=== PATIENT | male | born 1985 ===

== ENCOUNTER 2017-11-24 19:46 | Emergency (ER) | payer SELFPAY ==
[2017-11-24] MEDS ORDERED: PEPCID IV ONE (20:32)
[2017-11-24] MEDS ORDERED: NACL 0.9% 1000 ML 1,000 ML IV ONE ×2 (20:32→23:14)
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
[2017-11-24 20:42] LABS: Bilirubin,Urine NEG (Negative); Blood,Urine NEG (Negative); Color,Urine Yellow (Yellow); Mucus,Urine FEW /HPF; Protein,Urine <15 mg/dL mg/dL (Negative)
[2017-11-24 20:43] LABS: Basophils # (Auto) 0.1 K/mm3 (0.0-0.1); Basophils % (Auto) 0.5 % (0.0-1.8); Eosinophils # (Auto) 0.2 K/mm3 (0.0-0.4); Eosinophils % (Auto) 1.6 % (0.0-4.3); Hematocrit 37.6 % (35.5-45.6); Hemoglobin 12.4 gm/dl (11.8-15.2); Lymphocytes # (Auto) 2.4 K/mm3 (1.2-5.4); Lymphocytes % (Auto) 15.6 % (13.4-35.0); Mean Corpuscular HGB Conc 33 % (32-34); Mean Corpuscular Hemoglobin 31 pg (28-32); Mean Corpuscular Volume 95 fl (84-94); Monocytes # (Auto) 0.6 K/mm3 (0.0-0.8); Platelet Count 211 K/mm3 (140-440); Red Blood Count 3.97 M/mm3 (3.65-5.03); Red Cell Distribution Width 13.5 % (13.2-15.2)
[2017-11-24 20:56] LABS: Amphetamine Screen,Urine PRESUMPTIVE NEGATIVE; Benzodiazepines Screen,Urine PRESUMPTIVE NEGATIVE; Cannabinoid Screen,Urine PRESUMPTIVE NEGATIVE; Cocaine Screen,Urine PRESUMPTIVE NEGATIVE; Methadone Screen,Urine PRESUMPTIVE NEGATIVE; Opiate Screen,Urine PRESUMPTIVE NEGATIVE
[2017-11-24 21:02] LABS: INR 1.04 (0.87-1.13)
[2017-11-24 21:03] LABS: Alanine Aminotransferase 15 units/L (7-56); Albumin 3.8 g/dL (3.9-5); BUN/Creatinine Ratio 26; Blood Urea Nitrogen 26 mg/dL (9-20); Calcium 8.5 mg/dL (8.4-10.2); Hemolysis Index 6
--- NOTE | 2017-11-24 22:26 | Cat Scan Report ---
FINAL REPORT EXAM: CT HEAD/BRAIN WO CON HISTORY: sz vs syncope TECHNIQUE: Standard unenhanced CT of the head at 5.0 millimeter axial increments. PRIORS: None. FINDINGS: The ventricular system is normal in size and configuration. There is no evidence for parenchymal volume loss. There is no evidence for mass lesion, mass effect, midline shift, acute intracranial hemorrhage, or acute ischemia/ infarction. No evidence for acute skull fracture is seen. No abnormality in the overlying scalp soft tissues is seen. Visualized paranasal sinuses demonstrates mucosal thickening in the right frontal and bilateral ethmoid sinuses.. IMPRESSION: Chronic sinusitis of the right frontal and bilateral ethmoid sinuses. No acute intracranial process noted.
--- NOTE | 2017-11-24 22:37 | Cat Scan Report ---
FINAL REPORT PROCEDURE: CT ANGIO CHEST TECHNIQUE: Computerized tomographic angiography of the chest was performed after the IV injection of iodinated nonionic contrast including image processing. The image data was postprocessed using 2-dimensional multiplanar reformatted (MPR) and 3-dimensional (MIP and/or volume rendered) techniques. HISTORY: sz vs syncope COMPARISON: No prior studies are available for comparison. FINDINGS: Heart and pericardium: Normal. Thoracic aorta: Attenuation 329 HU. No evidence of dissection. Possible slight ductus defect Pulmonary vasculature: Relatively weak opacification of the pulmonary arteries. Predominant contrast in the aorta. Attenuation only 157 HU. No definite evidence of large or central PE in the main pulmonary outflow tract. Contrast is so weak at the main pulmonary arteries and distally is difficult to exclude moderate to small PE in the proximal pulmonary artery level in the hilar areas in the secondary and tertiary branches. If symptoms and or concern persists recommend followup with proper IV contrast timing or V/Q scan as warranted. Lymph nodes: Small lymph nodes in the pre portal area 1 x 1.5 centimeters. Lungs: Normal. Pleural space: No effusion, thickening, or pneumothorax. Musculoskeletal structures: No significant abnormality. Upper abdominal structures: Heterogeneous liver with corkscrew arterial anatomy. Gallstones seen gallbladder. Distended stomach. IMPRESSION: No acute pathology seen at this time. Inconclusive evaluation of pulmonary arteries due to phase of acquisition. Details above. Followup advised as warranted.
--- NOTE | 2017-11-24 22:48 | Cat Scan Report ---
FINAL REPORT EXAM: CT ABDOMEN PELVIS W CON HISTORY: sz vs syncope TECHNIQUE: Standard enhanced CT of the abdomen and pelvis. Coronal and sagittal reconstruction was also performed. Delayed imaging through the kidneys and bladder was obtained. Contrast: 100 mL Omnipaque 350 given IV. PRIORS: None. FINDINGS: Within the abdomen, the liver, spleen, pancreas, adrenal glands, and kidneys are unremarkable. Gallstones in the gallbladder are noted. The stomach is mildly distended and contains food debris. No evidence for retroperitoneal or pelvic lymphadenopathy is seen. The bowel loops have normal caliber. No soft tissue mass, fluid collection, inflammatory change, or free air is seen within the abdomen or pelvis. The appendix is normal. Several small midline ventral hernias are noted containing only fat (sagittal image 131). Within the pelvis, the bladder is unremarkable. The prostate is normal. No evidence for mass or lymphadenopathy is seen in the pelvis. Images through the upper abdomen include the lung bases which are expanded and clear. Bony structures show no focal abnormalities and are intact. IMPRESSION: 1. No acute intra-abdominal process noted. 2. Cholelithiasis 3. Several small midline ventral hernias containing only fat
--- NOTE | 2017-11-25 00:45 | Nuclear Medicine Report ---
FINAL REPORT EXAM: NM LUNG SCAN PERF/VENT HISTORY: syncope indeterminate v/w scan COMPARISON: CT angiography of the chest from yesterday. TECHNIQUE: 5 millicuries technetium 99 M MAA given for the perfusion portion the study by IV. 15 millicuries xenon 133 given for the ventilation portion of the study. FINDINGS: Relatively homogeneous uptake of tracer in both the ventilation and perfusion portions of the exam. No mismatched defect. IMPRESSION: Very low probability exam for pulmonary embolus.
[2017-11-25 02:39] VITALS: BP 100/56
[2017-11-25] MEDS ORDERED: DIPRIVAN 10 MG/ML IV ONE (18:30)
== END 2017-11-25 02:38 | disposition home or self-care (01) ==
LOC: ED 19:46
DX: R56.9 Unspecified convulsions (principal)
CPT/HCPCS: 36415; 70450; 71275; 74177; 78582; 80053; 80307; 81001; 82550; 83735; 84443; 84484; 85025; 85379; 85610; 93005; 93010; 96361; 96374; 99285; A9540; A9558; J2704; J7030; Q9967

== ENCOUNTER 2017-11-25 14:29 | Inpatient (IN) | payer OTHER ==
[2017-11-25 15:23] LABS: Hematocrit 29.2 % (35.5-45.6); Hemoglobin 9.6 gm/dl (11.8-15.2); Mean Corpuscular HGB Conc 33 % (32-34); Mean Corpuscular Hemoglobin 32 pg (28-32); Mean Corpuscular Volume 96 fl (84-94); Platelet Count 194 K/mm3 (140-440); Red Blood Count 3.04 M/mm3 (3.65-5.03); Red Cell Distribution Width 13.5 % (13.2-15.2)
[2017-11-25 15:25] LABS: INR 1.04 (0.87-1.13)
[2017-11-25 15:26] LABS: Partial Thromboplastin Time 23.9 Sec. (24.2-36.6)
[2017-11-25] MEDS ORDERED: NACL 0.9% 1000 ML 2,000 ML IV ONE (15:40)
[2017-11-25] MEDS ORDERED: NACL 0.9% 500 ML 500 ML IV ONE (15:40)
[2017-11-25] MEDS ORDERED: NACL 0.9% 1000 ML 2,000 ML ONE (15:42)
--- NOTE | 2017-11-25 15:42 | Emergency Department Report ---
Blank Doc - Documentation Documentation: Patient is a 32-year-old male. History of seizures who presents with GI bleed and fatigue. Patient had multiple large black tarry stools today. Patient states he had similar problems in May however he wasn't seen by anyone. Patient denies being in any pain. We'll transfuse patient will give Protonix.
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
[2017-11-25 15:53] LABS: Alanine Aminotransferase 13 units/L (7-56); Albumin 3.8 g/dL (3.9-5); BUN/Creatinine Ratio 29; Blood Urea Nitrogen 23 mg/dL (9-20); Calcium 8.2 mg/dL (8.4-10.2); Hemolysis Index 1; Lipase 31 units/L (13-60)
[2017-11-25] MEDS ORDERED: PROTONIX 80 MG in NACL 0.9% 100 ML IV SCH (16:00)
[2017-11-25 16:03] LABS: Basophils % (Manual) 0 % (0.0-1.8); Total Cells Counted 100
[2017-11-25 16:04] LABS: RBC Morphology Normal
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
[2017-11-25] MEDS ORDERED: WATER FOR IRRIG STERILE IR ONE (17:39)
[2017-11-25] MEDS ORDERED: NACL 0.9% 1000 ML 1,000 ML ONE (17:39)
[2017-11-25] MEDS ORDERED: DIPRIVAN 10 MG/ML IV ONE ×2 (17:56→17:57)
[2017-11-25] MEDS ORDERED: ADRENALIN ONE (18:00)
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
--- NOTE | 2017-11-25 18:04 | Anesthesia Consultation ---
Anesthesia Consult and Med Hx Date of service: 11/25/17 - Airway Anesthetic Teeth Evaluation: Good ROM Head & Neck: Adequate Mental/Hyoid Distance: Adequate Mallampati Class: Class III Intubation Access Assessment: Possibly Difficult - Pre-Operative Health Status ASA Pre-Surgery Classification: ASA3, Emergency Proposed Anesthetic Plan: MAC - Pulmonary Hx Smoking: Yes Hx Sleep Apnea: Yes (snoring) - Gastrointestinal Hx Ulcer: Yes (GI bleed) - Other Systems Hx Obesity: Yes (Morbid obesity)
--- NOTE | 2017-11-25 18:05 | Anesthesia Day of Surgery ---
Anesthesia Day of Surgery - Day of Surgery Patient Examined: Yes Patient H&P Reviewed: Yes Patient is NPO: Yes (had few sips of Gatorade over 2 hours ago, no food since 9AM)
--- NOTE | 2017-11-25 18:57 | Operative Report ---
Operative Report Operative Report: Date of procedure: 11/25/2017 Procedure: Esophagogastroduodenoscopy with hemorrhage control measures- epinephrine injection and Endo Clip placement Preprocedure diagnosis: Acute upper GI bleeding Post procedure diagnosis: Multiple duodenal ulcers 2 with visible vessels. Endoscopist: Dr. Graves Anesthesia: Monitored anesthesia care per anesthesia department Medications: Propofol per anesthesia Estimated blood loss: 0 After careful discussion of the nature and purpose of the procedure as well as details the technique risks benefits and alternatives consent was obtained. The patient was placed in the left lateral decubitus position and medicated per anesthesia. The tip of the Koinify EQ 570 video scope was passed per orum under direct vision into the esophagus and advanced into the stomach and descending duodenum. The descending duodenum was normal. The duodenal bulb revealed moderate deformity and a 1.5 cm dumbbell shaped ulcer crater with a visible vessel. There was a smaller ulcer approximately 5 mm in size which was oozing bright red blood. Epinephrine injection with 1-10,000 solution in each of the 2 areas was performed, 1 mL each. Endoclips were placed on the suspected bleeding sources with good immediate results. The scope was withdrawn into the stomach and the stomach then gently insufflated with air. The antrum was normal. The stomach was further insufflated and the scope was then retroflexed and partially withdrawn. The cardia, fundus, and body of the stomach were within normal limits and easily distensible.The scope was then withdrawn in the forward position. The esophagogastric junction was at 40 cm. The esophageal body was normal throughout. The procedure was was well tolerated and the patient was observed in recovery. Impressions: Multiple duodenal ulcers 2 with visible vessels. Status post hemorrhage control measures as above. Plan: ICU monitoring with PPI drip. Electronically signed: Andrew Graves MD
[2017-11-25] MEDS ORDERED: MORPHINE IV PRN (20:12)
[2017-11-25] MEDS ORDERED: ZOFRAN IV PRN (20:12)
[2017-11-25] MEDS ORDERED: TYLENOL PO PRN (20:12)
[2017-11-25] MEDS ORDERED: DILAUDID IV PRN (20:12)
[2017-11-25] MEDS ORDERED: SODIUM CHLORIDE FLUSH SYRINGE 10 ML IV PRN (20:12)
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
[2017-11-25 20:56] LABS: Hematocrit 25.6 % (35.5-45.6); Hemoglobin 8.5 gm/dl (11.8-15.2)
[2017-11-25] MEDS ORDERED: D5NS 1,000 ML IV SCH (21:00)
[2017-11-26] MEDS: SODIUM CHLORIDE FLUSH SYRINGE 10 ML IV SCH ×3 (00:52→22:00)
[2017-11-26 04:43] LABS: Basophils # (Auto) 0.1 K/mm3 (0.0-0.1); Basophils % (Auto) 0.7 % (0.0-1.8); Eosinophils # (Auto) 0.1 K/mm3 (0.0-0.4); Hematocrit 22.2 % (35.5-45.6); Hemoglobin 7.6 gm/dl (11.8-15.2); Lymphocytes # (Auto) 2.5 K/mm3 (1.2-5.4); Lymphocytes % (Auto) 24.8 % (13.4-35.0); Mean Corpuscular HGB Conc 34 % (32-34); Mean Corpuscular Hemoglobin 32 pg (28-32); Mean Corpuscular Volume 94 fl (84-94); Monocytes # (Auto) 0.7 K/mm3 (0.0-0.8); Monocytes % (Auto) 6.7 % (0.0-7.3); Platelet Count 142 K/mm3 (140-440); Red Blood Count 2.36 M/mm3 (3.65-5.03); Red Cell Distribution Width 13.4 % (13.2-15.2)
[2017-11-26 05:05] LABS: Alanine Aminotransferase 10 units/L (7-56); Albumin 3.5 g/dL (3.9-5); BUN/Creatinine Ratio 18; Blood Urea Nitrogen 16 mg/dL (9-20); Calcium 7.9 mg/dL (8.4-10.2); Hemolysis Index 6
[2017-11-26] MEDS: PROTONIX 80 MG in NACL 0.9% 100 ML IV SCH ×2 (05:12→18:21)
[2017-11-26] MEDS ORDERED: NACL 0.9% 500 ML 500 ML IV ONE (06:47)
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
--- NOTE | 2017-11-26 08:12 | Gastroenterology Progress Note ---
Assessment and Plan - Patient Problems (1) Acute upper GI bleed Current Visit: Yes Status: Acute Plan to address problem: S/p major UGI bleed secondary to duodenal ulcer. Decreased H&H and BUN more c/ w rehydration than bleeding overnight. Getting transfused presently. Stable hemodynamically. Will advance to clears. Continue PPI drip. Home 1-2 days if remains stable. (2) Duodenal ulcer Current Visit: Yes Status: Acute Subjective Date of service: 11/26/17 Principal diagnosis: UGI bleed secondary to PUD Interval history: The patient reports feeling better. No stools overnight. Objective - Constitutional Vitals: Temp Pulse Resp BP Pulse Ox 99.1 F 87 18 130/76 100 11/25/17 19:56 11/26/17 06:45 11/26/17 06:45 11/26/17 06:45 11/26/17 06:30 General appearance: no acute distress, obese - EENT ENT: hearing intact, clear oral mucosa, dentition normal - Respiratory Respiratory effort: normal Respiratory: bilateral: CTA - Cardiovascular Rhythm: regular - Gastrointestinal General gastrointestinal: Present: soft, non-tender, non-distended, normal bowel sounds - Neurologic Neurological: alert and oriented x3 - Labs CBC & Chem 7: 11/26/17 04:20 11/26/17 04:20 Labs: Laboratory Results - last 24 hr 11/25/17 11/25/17 11/25/17 15:02 15:02 15:02 WBC 12.5 H RBC 3.04 L Hgb 9.6 L Hct 29.2 L D MCV 96 H MCH 32 MCHC 33 RDW 13.5 Plt Count 194 Lymph % (Auto) [place] % (Auto) Eos % (Auto) Baso % (Auto) Lymph # [place] # Eos # Baso # Add Manual Diff Complete Total Counted 100 Seg Neutrophils % Seg Neuts % (Manual) 81.0 H Band Neutrophils % 0 Lymphocytes % (Manual) 13.0 L Reactive Lymphs % (Man) 0 Monocytes % (Manual) 4.0 Eosinophils % (Manual) 2.0 Basophils % (Manual) 0 Metamyelocytes % 0 Myelocytes % 0 Promyelocytes % 0 Blast Cells % 0 Nucleated RBC % Not Reportable Seg Neutrophils # Seg Neutrophils # Man 10.1 H Band Neutrophils # 0.0 Lymphocytes # (Manual) 1.6 Abs React Lymphs (Man) 0.0 Monocytes # (Manual) 0.5 Eosinophils # (Manual) 0.3 Basophils # (Manual) 0.0 Metamyelocytes # 0.0 Myelocytes # 0.0 Promyelocytes # 0.0 Blast Cells # 0.0 WBC Morphology Not Reportable Hypersegmented Neuts Not Reportable Hyposegmented Neuts Not Reportable Hypogranular Neuts Not Reportable Smudge Cells Not Reportable Toxic Granulation Not Reportable Toxic Vacuolation Not Reportable Dohle Bodies Not Reportable Pelger-Huet Anomaly Not Reportable Iain Rods Not Reportable Platelet Estimate Appears normal Clumped Platelets Not Reportable Plt Clumps, EDTA Not Reportable Large Platelets Not Reportable Giant Platelets Not Reportable Platelet Satelliting Not Reportable Plt Morphology Comment Not Reportable RBC Morphology Normal Dimorphic RBCs Not Reportable Polychromasia Not Reportable Hypochromasia Not Reportable Poikilocytosis Not Reportable Anisocytosis Not Reportable Microcytosis Not Reportable Macrocytosis Not Reportable Spherocytes Not Reportable Pappenheimer Bodies Not Reportable Sickle Cells Not Reportable Target Cells Not Reportable Tear Drop Cells Not Reportable Ovalocytes Not Reportable Helmet Cells Not Reportable Barajas-Bowler Bodies Not Reportable [place] Rings Not Reportable [place] Cells Not Reportable Bite Cells Not Reportable Crenated Cell Not Reportable Elliptocytes Not Reportable Acanthocytes (Spur) Not Reportable Rouleaux Not Reportable Hemoglobin C Crystals Not Reportable Schistocytes Not Reportable Malaria parasites Not Reportable Gregorio Bodies Not Reportable Hem Pathologist Commnt No PT 14.1 INR 1.04 APTT 23.9 L Sodium 137 Potassium 4.2 Chloride 101.9 Carbon Dioxide 24 Anion Gap 15 BUN 23 H Creatinine 0.8 Estimated GFR > 60 BUN/Creatinine Ratio 29 Glucose 105 H Calcium 8.2 L Total Bilirubin 0.50 AST 10 ALT 13 Alkaline Phosphatase 37 Total Protein 6.1 L Albumin 3.8 L Albumin/Globulin Ratio 1.7 Lipase 31 Blood Type Antibody Screen Crossmatch 11/25/17 11/25/17 11/26/17 15:02 20:44 04:20 WBC 10.1 RBC 2.36 L Hgb 8.5 L 7.6 L Hct 25.6 L 22.2 L MCV 94 MCH 32 MCHC 34 RDW 13.4 Plt Count 142 Lymph % (Auto) 24.8 [place] % (Auto) 6.7 Eos % (Auto) 1.0 Baso % (Auto) 0.7 Lymph # 2.5 [place] # 0.7 Eos # 0.1 Baso # 0.1 Add Manual Diff Total Counted Seg Neutrophils % 66.8 Seg Neuts % (Manual) Band Neutrophils % Lymphocytes % (Manual) Reactive Lymphs % (Man) Monocytes % (Manual) Eosinophils % (Manual) Basophils % (Manual) Metamyelocytes % Myelocytes % Promyelocytes % Blast Cells % Nucleated RBC % Seg Neutrophils # 6.7 Seg Neutrophils # Man Band Neutrophils # Lymphocytes # (Manual) Abs React Lymphs (Man) Monocytes # (Manual) Eosinophils # (Manual) Basophils # (Manual) Metamyelocytes # Myelocytes # Promyelocytes # Blast Cells # WBC Morphology Hypersegmented Neuts Hyposegmented Neuts Hypogranular Neuts Smudge Cells Toxic Granulation Toxic Vacuolation Dohle Bodies Pelger-Huet Anomaly Iain Rods Platelet Estimate Clumped Platelets Plt Clumps, EDTA Large Platelets Giant Platelets Platelet Satelliting Plt Morphology Comment RBC Morphology Dimorphic RBCs Polychromasia Hypochromasia Poikilocytosis Anisocytosis Microcytosis Macrocytosis Spherocytes Pappenheimer Bodies Sickle Cells Target Cells Tear Drop Cells Ovalocytes Helmet Cells Barajas-Bowler Bodies [place] Rings Olivier Cells Bite Cells Crenated Cell Elliptocytes Acanthocytes (Spur) Rouleaux Hemoglobin C Crystals Schistocytes Malaria parasites Gregorio Bodies Hem Pathologist Commnt PT INR APTT Sodium Potassium Chloride Carbon Dioxide Anion Gap BUN Creatinine Estimated GFR BUN/Creatinine Ratio Glucose Calcium Total Bilirubin AST ALT Alkaline Phosphatase Total Protein Albumin Albumin/Globulin Ratio Lipase Blood Type A POSITIVE Antibody Screen Negative Crossmatch See Detail 11/26/17 04:20 WBC RBC Hgb Hct MCV MCH MCHC RDW Plt Count Lymph % (Auto) [place] % (Auto) Eos % (Auto) Baso % (Auto) Lymph # [place] # Eos # Baso # Add Manual Diff Total Counted Seg Neutrophils % Seg Neuts % (Manual) Band Neutrophils % Lymphocytes % (Manual) Reactive Lymphs % (Man) Monocytes % (Manual) Eosinophils % (Manual) Basophils % (Manual) Metamyelocytes % Myelocytes % Promyelocytes % Blast Cells % Nucleated RBC % Seg Neutrophils # Seg Neutrophils # Man Band Neutrophils # Lymphocytes # (Manual) Abs React Lymphs (Man) Monocytes # (Manual) Eosinophils # (Manual) Basophils # (Manual) Metamyelocytes # Myelocytes # Promyelocytes # Blast Cells # WBC Morphology Hypersegmented Neuts Hyposegmented Neuts Hypogranular Neuts Smudge Cells Toxic Granulation Toxic Vacuolation Dohle Bodies Pelger-Huet Anomaly Iain Rods Platelet Estimate Clumped Platelets Plt Clumps, EDTA Large Platelets Giant Platelets Platelet Satelliting Plt Morphology Comment RBC Morphology Dimorphic RBCs Polychromasia Hypochromasia Poikilocytosis Anisocytosis Microcytosis Macrocytosis Spherocytes Pappenheimer Bodies Sickle Cells Target Cells Tear Drop Cells Ovalocytes Helmet Cells Barajas-Bowler Bodies [place] Rings [place] Cells Bite Cells Crenated Cell Elliptocytes Acanthocytes (Spur) Rouleaux Hemoglobin C Crystals Schistocytes Malaria parasites Gregorio Bodies Hem Pathologist Commnt PT INR APTT Sodium 138 Potassium 4.0 Chloride 102.9 Carbon Dioxide 24 Anion Gap 15 BUN 16 Creatinine 0.9 Estimated GFR > 60 BUN/Creatinine Ratio 18 Glucose 106 H Calcium 7.9 L Total Bilirubin 0.50 AST 9 ALT 10 Alkaline Phosphatase 32 L Total Protein 5.4 L Albumin 3.5 L Albumin/Globulin Ratio 1.8 Lipase Blood Type Antibody Screen Crossmatch
[2017-11-26 11:48] LABS: Hematocrit 24.8 % (35.5-45.6); Hemoglobin 8.3 gm/dl (11.8-15.2)
--- NOTE | 2017-11-26 17:23 | Progress Note ---
Assessment and Plan Assessment and plan: --Acute GI bleeding; status post EGD Major upper GI bleeding secondary to duodenal ulcer Continue Protonix drip, advised to avoid NSAIDs, GI following --Acute blood loss anemia; requiring blood transfusion Closely monitor H&H and transfuse additional PRBC as needed --Acute duodenal ulcer; continue Protonix, strongly advised to avoid NSAIDs --Morbid obesity; counseling done patient strongly advised diet modification and exercise as tolerated and weight reduction and medically stable --Moderate protein calorie malnutrition; nutrition supplements and supportive care --Ongoing tobacco use; smoking cessation counseling done advised nicotine patch as needed --Closely monitor the patient and adjust management as needed --Possible discharge in 1-2 days if stable Plan of care reviewed with the patient and his nurse Consults and recommendations noted and appreciated History Interval history: Patient seen and examined medical records reviewed Admitted with acute GI bleeding Evaluated by GI and underwent EGD which showed 2 duodenal ulcers Patient is also acute blood loss anemia receiving blood transfusion No new episodes of bleeding Patient denies any new complaints Alert awake oriented 3 not in acute distress Vital signs reviewed Hospitalist Physical - Constitutional Vitals: Temp Pulse Resp BP Pulse Ox 99.0 F 88 20 123/67 99 11/26/17 16:02 11/26/17 16:02 11/26/17 16:02 11/26/17 16:02 11/26/17 16:02 General appearance: Present: no acute distress, well-nourished, obese (morbidly obese) - EENT Eyes: Present: PERRL, EOM intact - Neck Neck: Present: supple, normal ROM - Respiratory Respiratory effort: normal Respiratory: negative: rales, rhonchi, wheezing - Cardiovascular Rhythm: regular Heart Sounds: Present: S1 & S2 - Extremities Extremities: no ischemia, No edema - Abdominal General gastrointestinal: soft, non-tender, non-distended, normal bowel sounds - Integumentary Integumentary: Present: clear, warm - Psychiatric Psychiatric: appropriate mood/affect, cooperative - Neurologic Neurologic: CNII-XII intact, moves all extremities Results - Labs CBC & Chem 7: 11/26/17 11:41 11/26/17 04:20 Labs: Laboratory Last Values WBC 10.1 K/mm3 (4.5-11.0) 11/26/17 04:20 RBC 2.36 M/mm3 (3.65-5.03) L 11/26/17 04:20 Hgb 8.3 gm/dl (11.8-15.2) L 11/26/17 11:41 Hct 24.8 % (35.5-45.6) L 11/26/17 11:41 MCV 94 fl (84-94) 11/26/17 04:20 MCH 32 pg (28-32) 11/26/17 04:20 MCHC 34 % (32-34) 11/26/17 04:20 RDW 13.4 % (13.2-15.2) 11/26/17 04:20 Plt Count 142 K/mm3 (140-440) 11/26/17 04:20 Lymph % (Auto) 24.8 % (13.4-35.0) 11/26/17 04:20 [place] % (Auto) 6.7 % (0.0-7.3) 11/26/17 04:20 Eos % (Auto) 1.0 % (0.0-4.3) 11/26/17 04:20 Baso % (Auto) 0.7 % (0.0-1.8) 11/26/17 04:20 Lymph # 2.5 K/mm3 (1.2-5.4) 11/26/17 04:20 [place] # 0.7 K/mm3 (0.0-0.8) 11/26/17 04:20 Eos # 0.1 K/mm3 (0.0-0.4) 11/26/17 04:20 Baso # 0.1 K/mm3 (0.0-0.1) 11/26/17 04:20 Add Manual Diff Complete 11/25/17 15:02 Total Counted 100 11/25/17 15:02 Seg Neutrophils % 66.8 % (40.0-70.0) 11/26/17 04:20 Seg Neuts % (Manual) 81.0 % (40.0-70.0) H 11/25/17 15:02 Band Neutrophils % 0 % 11/25/17 15:02 Lymphocytes % (Manual) 13.0 % (13.4-35.0) L 11/25/17 15:02 Reactive Lymphs % (Man) 0 % 11/25/17 15:02 Monocytes % (Manual) 4.0 % (0.0-7.3) 11/25/17 15:02 Eosinophils % (Manual) 2.0 % (0.0-4.3) 11/25/17 15:02 Basophils % (Manual) 0 % (0.0-1.8) 11/25/17 15:02 Metamyelocytes % 0 % 11/25/17 15:02 Myelocytes % 0 % 11/25/17 15:02 Promyelocytes % 0 % 11/25/17 15:02 Blast Cells % 0 % 11/25/17 15:02 Nucleated RBC % Not Reportable 11/25/17 15:02 Seg Neutrophils # 6.7 K/mm3 (1.8-7.7) 11/26/17 04:20 Seg Neutrophils # Man 10.1 K/mm3 (1.8-7.7) H 11/25/17 15:02 Band Neutrophils # 0.0 K/mm3 11/25/17 15:02 Lymphocytes # (Manual) 1.6 K/mm3 (1.2-5.4) 11/25/17 15:02 Abs React Lymphs (Man) 0.0 K/mm3 11/25/17 15:02 Monocytes # (Manual) 0.5 K/mm3 (0.0-0.8) 11/25/17 15:02 Eosinophils # (Manual) 0.3 K/mm3 (0.0-0.4) 11/25/17 15:02 Basophils # (Manual) 0.0 K/mm3 (0.0-0.1) 11/25/17 15:02 Metamyelocytes # 0.0 K/mm3 11/25/17 15:02 Myelocytes # 0.0 K/mm3 11/25/17 15:02 Promyelocytes # 0.0 K/mm3 11/25/17 15:02 Blast Cells # 0.0 K/mm3 11/25/17 15:02 WBC Morphology Not Reportable 11/25/17 15:02 Hypersegmented Neuts Not Reportable 11/25/17 15:02 Hyposegmented Neuts Not Reportable 11/25/17 15:02 Hypogranular Neuts Not Reportable 11/25/17 15:02 Smudge Cells Not Reportable 11/25/17 15:02 Toxic Granulation Not Reportable 11/25/17 15:02 Toxic Vacuolation Not Reportable 11/25/17 15:02 Dohle Bodies Not Reportable 11/25/17 15:02 Pelger-Huet Anomaly Not Reportable 11/25/17 15:02 Iain Rods Not Reportable 11/25/17 15:02 Platelet Estimate Appears normal 11/25/17 15:02 Clumped Platelets Not Reportable 11/25/17 15:02 Plt Clumps, EDTA Not Reportable 11/25/17 15:02 Large Platelets Not Reportable 11/25/17 15:02 Giant Platelets Not Reportable 11/25/17 15:02 Platelet Satelliting Not Reportable 11/25/17 15:02 Plt Morphology Comment Not Reportable 11/25/17 15:02 RBC Morphology Normal 11/25/17 15:02 Dimorphic RBCs Not Reportable 11/25/17 15:02 Polychromasia Not Reportable 11/25/17 15:02 Hypochromasia Not Reportable 11/25/17 15:02 Poikilocytosis Not Reportable 11/25/17 15:02 Anisocytosis Not Reportable 11/25/17 15:02 Microcytosis Not Reportable 11/25/17 15:02 Macrocytosis Not Reportable 11/25/17 15:02 Spherocytes Not Reportable 11/25/17 15:02 Pappenheimer Bodies Not Reportable 11/25/17 15:02 Sickle Cells Not Reportable 11/25/17 15:02 Target Cells Not Reportable 11/25/17 15:02 Tear Drop Cells Not Reportable 11/25/17 15:02 Ovalocytes Not Reportable 11/25/17 15:02 Helmet Cells Not Reportable 11/25/17 15:02 Barajas-Cromberg Bodies Not Reportable 11/25/17 15:02 [place] Rings Not Reportable 11/25/17 15:02 Olivier Cells Not Reportable 11/25/17 15:02 Bite Cells Not Reportable 11/25/17 15:02 Crenated Cell Not Reportable 11/25/17 15:02 Elliptocytes Not Reportable 11/25/17 15:02 Acanthocytes (Spur) Not Reportable 11/25/17 15:02 Rouleaux Not Reportable 11/25/17 15:02 Hemoglobin C Crystals Not Reportable 11/25/17 15:02 Schistocytes Not Reportable 11/25/17 15:02 Malaria parasites Not Reportable 11/25/17 15:02 Gregorio Bodies Not Reportable 11/25/17 15:02 Hem Pathologist Commnt No 11/25/17 15:02 PT 14.1 Sec. (12.2-14.9) 11/25/17 15:02 INR 1.04 (0.87-1.13) 11/25/17 15:02 APTT 23.9 Sec. (24.2-36.6) L 11/25/17 15:02 Sodium 138 mmol/L (137-145) 11/26/17 04:20 Potassium 4.0 mmol/L (3.6-5.0) 11/26/17 04:20 Chloride 102.9 mmol/L (98-107) 11/26/17 04:20 Carbon Dioxide 24 mmol/L (22-30) 11/26/17 04:20 Anion Gap 15 mmol/L 11/26/17 04:20 BUN 16 mg/dL (9-20) 11/26/17 04:20 Creatinine 0.9 mg/dL (0.8-1.5) 11/26/17 04:20 Estimated GFR > 60 ml/min 11/26/17 04:20 BUN/Creatinine Ratio 18 % 11/26/17 04:20 Glucose 106 mg/dL (75-100) H 11/26/17 04:20 Calcium 7.9 mg/dL (8.4-10.2) L 11/26/17 04:20 Total Bilirubin 0.50 mg/dL (0.1-1.2) 11/26/17 04:20 AST 9 units/L (5-40) 11/26/17 04:20 ALT 10 units/L (7-56) 11/26/17 04:20 Alkaline Phosphatase 32 units/L (35-129) L 11/26/17 04:20 Total Protein 5.4 g/dL (6.3-8.2) L 11/26/17 04:20 Albumin 3.5 g/dL (3.9-5) L 11/26/17 04:20 Albumin/Globulin Ratio 1.8 % 11/26/17 04:20 Lipase 31 units/L (13-60) 11/25/17 15:02 Blood Type A POSITIVE 03/29/18 15:02 Antibody Screen Negative 11/25/17 15:02 Crossmatch See Detail 11/25/17 15:02
[2017-11-27] MEDS: PROTONIX 80 MG in NACL 0.9% 100 ML IV SCH ×2 (05:33→23:42)
[2017-11-27 07:43] LABS: Basophils # (Auto) 0.1 K/mm3 (0.0-0.1); Basophils % (Auto) 0.9 % (0.0-1.8); Eosinophils # (Auto) 0.2 K/mm3 (0.0-0.4); Eosinophils % (Auto) 3.4 % (0.0-4.3); Hematocrit 24.7 % (35.5-45.6); Hemoglobin 8.3 gm/dl (11.8-15.2); Lymphocytes # (Auto) 1.8 K/mm3 (1.2-5.4); Lymphocytes % (Auto) 27.8 % (13.4-35.0); Mean Corpuscular HGB Conc 34 % (32-34); Mean Corpuscular Hemoglobin 31 pg (28-32); Mean Corpuscular Volume 93 fl (84-94); Monocytes # (Auto) 0.4 K/mm3 (0.0-0.8); Monocytes % (Auto) 6.2 % (0.0-7.3); Platelet Count 160 K/mm3 (140-440); Red Blood Count 2.65 M/mm3 (3.65-5.03); Red Cell Distribution Width 14.6 % (13.2-15.2)
[2017-11-27 07:58] LABS: BUN/Creatinine Ratio 9; Blood Urea Nitrogen 7 mg/dL (9-20); Calcium 8.6 mg/dL (8.4-10.2); Hemolysis Index 61
[2017-11-27] MEDS: SODIUM CHLORIDE FLUSH SYRINGE 10 ML IV SCH ×2 (09:44→23:41)
[2017-11-27] MEDS ORDERED: HABITROL TD SCH (10:00)
--- NOTE | 2017-11-27 12:23 | Discharge Summary ---
Providers - Providers Date of Admission: 11/25/17 17:08 Date of discharge: 11/27/17 Attending physician: KAEL TERRELL 11/25/17 20:12 Consult to Physician [CONS] Routine Comment: Consulting Provider: DI BLAIR Physician Instructions: Reason For Exam: GI bleed 11/26/17 06:48 Consult to Dietitian/Nutrition [CONS] Routine Physician Instructions: Reason For Exam: Malnutrition Reason for Consult: Pt needs oral supplement Primary care physician: DATA ENTRY PROCESSOR Hospitalization Reason for admission: acute GI bleeding/black tarry stool Condition: Stable Procedures: EGD; Esophagogastroduodenoscopy with hemorrhage control measures-epinephrine injection and Endo Clip placement PRBC blood transfusion Hospital course: Very pleasant obese 32-year-old -[place] male patient with no significant past medical history was admitted through emergency room visit generalized weakness dizziness and acute GI bleeding/ passing of black tarry stools Patient was evaluated and noted to be anemic, received 1 unit of PRBC Evaluated by GI, underwent EGD with procedure to control active hemorrhoids with epinephrine and clip placement. Also noted to have multiple duodenal ulcers Patient was symptomatically managed, placed on Protonix drip Strongly advised to avoid NSAIDs Patient closely monitored, did not have any new episodes of GI bleeding,H&H is stable Today his comfortable no new complaints, Vital signs stable Physical examination unremarkable Cleared by GI, follow-up again in the office per schedule Patient is hemodynamically and clinically stable at discharge Discharge diagnosis; --Acute GI bleeding; --Acute blood loss anemia; requiring blood transfusion --Multiple duodenal ulcers --Morbid obesity; counseling done --Moderate protein calorie malnutrition; Disposition: TO HOME OR SELFCARE Time spent for discharge: 31 min Core Measure Documentation - Palliative Care Palliative Care/ Comfort Measures: Not Applicable - Core Measures Any of the following diagnoses?: none Exam - Constitutional Vitals: Temp Pulse Resp BP Pulse Ox 98.4 F 69 18 111/64 96 11/27/17 08:03 11/27/17 08:03 11/27/17 08:03 11/27/17 08:03 11/27/17 08:03 General appearance: Present: no acute distress, well-nourished - EENT Eyes: Present: PERRL, EOM intact - Neck Neck: Present: supple, normal ROM - Respiratory Respiratory effort: normal Respiratory: negative: rales, rhonchi, wheezing - Cardiovascular Rhythm: regular Heart Sounds: Present: S1 & S2 - Extremities Extremities: no ischemia, No edema Peripheral Pulses: within normal limits - Abdominal General gastrointestinal: Present: soft, non-tender, non-distended, normal bowel sounds - Integumentary Integumentary: Present: clear, warm - Musculoskeletal Musculoskeletal: strength equal bilaterally - Psychiatric Psychiatric: appropriate mood/affect, cooperative - Neurologic Neurologic: CNII-XII intact, moves all extremities Plan Activity: no restrictions Diet: advance as tolerated, other (soft diet ) Additional Instructions: advised to Avoid NSAIDs. If you notice any new episodes of bleeding contact M.D. or go to emergency room Follow up with: PRIMARY CAREMD [Primary Care Provider] - 3-5 Days DI BLAIR MD [Staff Physician] - 7 Days Forms: Accompanied Note Prescriptions: Ferrous Sulfate [Feosol 325 MG tab] 325 mg PO BID #60 tablet Pantoprazole [Protonix] 40 mg PO BID #60 tablet
--- NOTE | 2017-11-27 16:56 | Gastroenterology Progress Note ---
Assessment and Plan 1. UGI bleed - 2/2 DU s/p endoscopic tx for multiple high risk bleeding lesion. no further episodes of bleeding and h/h stable. advance diet as tolerated. likely can d/c tomorrow if no further signs of bleeding. Subjective Date of service: 11/27/17 Principal diagnosis: UGI bleed secondary to PUD Interval history: pt seen and examined. no bleeding episodes since egd. tolerating clears. Objective - Constitutional Vitals: Temp Pulse Resp BP Pulse Ox 98.4 F 69 18 111/64 96 11/27/17 08:03 11/27/17 08:03 11/27/17 08:03 11/27/17 08:03 11/27/17 08:03 General appearance: no acute distress - Respiratory Respiratory effort: normal Respiratory: bilateral: CTA - Cardiovascular Rhythm: regular Heart Sounds: Present: S1 & S2 - Extremities Extremities: No edema - Gastrointestinal General gastrointestinal: Present: soft, non-tender, non-distended - Neurologic Neurological: alert and oriented x3 - Labs CBC & Chem 7: 11/27/17 07:16 11/27/17 07:16 Labs: Laboratory Results - last 24 hr 11/27/17 11/27/17 07:16 07:16 WBC 6.6 RBC 2.65 L Hgb 8.3 L Hct 24.7 L MCV 93 MCH 31 MCHC 34 RDW 14.6 Plt Count 160 Lymph % (Auto) 27.8 [place] % (Auto) 6.2 Eos % (Auto) 3.4 Baso % (Auto) 0.9 Lymph # 1.8 [place] # 0.4 Eos # 0.2 Baso # 0.1 Seg Neutrophils % 61.7 Seg Neutrophils # 4.1 Sodium 138 Potassium 3.7 Chloride 102.9 Carbon Dioxide 25 Anion Gap 14 BUN 7 L Creatinine 0.8 Estimated GFR > 60 BUN/Creatinine Ratio 9 Glucose 90 Calcium 8.6 Magnesium 1.90
--- NOTE | 2017-11-27 17:29 | Progress Note ---
Assessment and Plan Assessment and plan: --Acute GI bleeding; no new episodes of bleeding Major upper GI bleeding secondary to multiple duodenal ulcer s/p Esophagogastroduodenoscopy with hemorrhage control with-epinephrine injection and Endo Clip placement Continue Protonix drip, advised to avoid NSAIDs, Advance diet as tolerated --Acute blood loss anemia; requiring blood transfusion Closely monitor H&H and transfuse additional PRBC as needed --Morbid obesity; counseling done patient strongly advised diet modification and exercise as tolerated and weight reduction and medically stable --Moderate protein calorie malnutrition; nutrition supplements and supportive care --Closely monitor the patient and adjust management as needed --Possible discharge tomorrow if stable Plan of care reviewed with the patient and his nurse Discussed with GI Dr. Hunt History Interval history: Patient seen and examined medical records reviewed Initially decided to discharge the patient if agreeable with GI GI recommend discharge tomorrow if stable Patient has no new episodes of bleeding Plan advance diet as tolerated Vital signs reviewed Hospitalist Physical - Constitutional Vitals: Temp Pulse Resp BP Pulse Ox 98.4 F 69 18 111/64 96 11/27/17 08:03 11/27/17 08:03 11/27/17 08:03 11/27/17 08:03 11/27/17 08:03 General appearance: Present: no acute distress, well-nourished - EENT Eyes: Present: PERRL, EOM intact - Neck Neck: Present: supple, normal ROM - Respiratory Respiratory effort: normal Respiratory: bilateral: diminished, negative: rales, rhonchi, wheezing - Cardiovascular Rhythm: regular Heart Sounds: Present: S1 & S2 - Extremities Extremities: no ischemia, No edema - Abdominal General gastrointestinal: soft, non-tender, non-distended, normal bowel sounds - Integumentary Integumentary: Present: clear, warm - Psychiatric Psychiatric: appropriate mood/affect, cooperative - Neurologic Neurologic: CNII-XII intact, moves all extremities Results - Labs CBC & Chem 7: 11/27/17 07:16 11/27/17 07:16 Labs: Laboratory Last Values WBC 6.6 K/mm3 (4.5-11.0) 11/27/17 07:16 RBC 2.65 M/mm3 (3.65-5.03) L 11/27/17 07:16 Hgb 8.3 gm/dl (11.8-15.2) L 11/27/17 07:16 Hct 24.7 % (35.5-45.6) L 11/27/17 07:16 MCV 93 fl (84-94) 11/27/17 07:16 MCH 31 pg (28-32) 11/27/17 07:16 MCHC 34 % (32-34) 11/27/17 07:16 RDW 14.6 % (13.2-15.2) 11/27/17 07:16 Plt Count 160 K/mm3 (140-440) 11/27/17 07:16 Lymph % (Auto) 27.8 % (13.4-35.0) 11/27/17 07:16 [place] % (Auto) 6.2 % (0.0-7.3) 11/27/17 07:16 Eos % (Auto) 3.4 % (0.0-4.3) 11/27/17 07:16 Baso % (Auto) 0.9 % (0.0-1.8) 11/27/17 07:16 Lymph # 1.8 K/mm3 (1.2-5.4) 11/27/17 07:16 [place] # 0.4 K/mm3 (0.0-0.8) 11/27/17 07:16 Eos # 0.2 K/mm3 (0.0-0.4) 11/27/17 07:16 Baso # 0.1 K/mm3 (0.0-0.1) 11/27/17 07:16 Add Manual Diff Complete 11/25/17 15:02 Total Counted 100 11/25/17 15:02 Seg Neutrophils % 61.7 % (40.0-70.0) 11/27/17 07:16 Seg Neuts % (Manual) 81.0 % (40.0-70.0) H 11/25/17 15:02 Band Neutrophils % 0 % 11/25/17 15:02 Lymphocytes % (Manual) 13.0 % (13.4-35.0) L 11/25/17 15:02 Reactive Lymphs % (Man) 0 % 11/25/17 15:02 Monocytes % (Manual) 4.0 % (0.0-7.3) 11/25/17 15:02 Eosinophils % (Manual) 2.0 % (0.0-4.3) 11/25/17 15:02 Basophils % (Manual) 0 % (0.0-1.8) 11/25/17 15:02 Metamyelocytes % 0 % 11/25/17 15:02 Myelocytes % 0 % 11/25/17 15:02 Promyelocytes % 0 % 11/25/17 15:02 Blast Cells % 0 % 11/25/17 15:02 Nucleated RBC % Not Reportable 11/25/17 15:02 Seg Neutrophils # 4.1 K/mm3 (1.8-7.7) 11/27/17 07:16 Seg Neutrophils # Man 10.1 K/mm3 (1.8-7.7) H 11/25/17 15:02 Band Neutrophils # 0.0 K/mm3 11/25/17 15:02 Lymphocytes # (Manual) 1.6 K/mm3 (1.2-5.4) 11/25/17 15:02 Abs React Lymphs (Man) 0.0 K/mm3 11/25/17 15:02 Monocytes # (Manual) 0.5 K/mm3 (0.0-0.8) 11/25/17 15:02 Eosinophils # (Manual) 0.3 K/mm3 (0.0-0.4) 11/25/17 15:02 Basophils # (Manual) 0.0 K/mm3 (0.0-0.1) 11/25/17 15:02 Metamyelocytes # 0.0 K/mm3 11/25/17 15:02 Myelocytes # 0.0 K/mm3 11/25/17 15:02 Promyelocytes # 0.0 K/mm3 11/25/17 15:02 Blast Cells # 0.0 K/mm3 11/25/17 15:02 WBC Morphology Not Reportable 11/25/17 15:02 Hypersegmented Neuts Not Reportable 11/25/17 15:02 Hyposegmented Neuts Not Reportable 11/25/17 15:02 Hypogranular Neuts Not Reportable 11/25/17 15:02 Smudge Cells Not Reportable 11/25/17 15:02 Toxic Granulation Not Reportable 11/25/17 15:02 Toxic Vacuolation Not Reportable 11/25/17 15:02 Dohle Bodies Not Reportable 11/25/17 15:02 Pelger-Huet Anomaly Not Reportable 11/25/17 15:02 Iain Rods Not Reportable 11/25/17 15:02 Platelet Estimate Appears normal 11/25/17 15:02 Clumped Platelets Not Reportable 11/25/17 15:02 Plt Clumps, EDTA Not Reportable 11/25/17 15:02 Large Platelets Not Reportable 11/25/17 15:02 Giant Platelets Not Reportable 11/25/17 15:02 Platelet Satelliting Not Reportable 11/25/17 15:02 Plt Morphology Comment Not Reportable 11/25/17 15:02 RBC Morphology Normal 11/25/17 15:02 Dimorphic RBCs Not Reportable 11/25/17 15:02 Polychromasia Not Reportable 11/25/17 15:02 Hypochromasia Not Reportable 11/25/17 15:02 Poikilocytosis Not Reportable 11/25/17 15:02 Anisocytosis Not Reportable 11/25/17 15:02 Microcytosis Not Reportable 11/25/17 15:02 Macrocytosis Not Reportable 11/25/17 15:02 Spherocytes Not Reportable 11/25/17 15:02 Pappenheimer Bodies Not Reportable 11/25/17 15:02 Sickle Cells Not Reportable 11/25/17 15:02 Target Cells Not Reportable 11/25/17 15:02 Tear Drop Cells Not Reportable 11/25/17 15:02 Ovalocytes Not Reportable 11/25/17 15:02 Helmet Cells Not Reportable 11/25/17 15:02 [place]-Bird-In-Hand Bodies Not Reportable 11/25/17 15:02 Yolyn Rings Not Reportable 11/25/17 15:02 Olivier Cells Not Reportable 11/25/17 15:02 Bite Cells Not Reportable 11/25/17 15:02 Crenated Cell Not Reportable 11/25/17 15:02 Elliptocytes Not Reportable 11/25/17 15:02 Acanthocytes (Spur) Not Reportable 11/25/17 15:02 Rouleaux Not Reportable 11/25/17 15:02 Hemoglobin C Crystals Not Reportable 11/25/17 15:02 Schistocytes Not Reportable 11/25/17 15:02 Malaria parasites Not Reportable 11/25/17 15:02 Gregorio Bodies Not Reportable 11/25/17 15:02 Hem Pathologist Commnt No 11/25/17 15:02 PT 14.1 Sec. (12.2-14.9) 11/25/17 15:02 INR 1.04 (0.87-1.13) 11/25/17 15:02 APTT 23.9 Sec. (24.2-36.6) L 11/25/17 15:02 Sodium 138 mmol/L (137-145) 11/27/17 07:16 Potassium 3.7 mmol/L (3.6-5.0) 11/27/17 07:16 Chloride 102.9 mmol/L (98-107) 11/27/17 07:16 Carbon Dioxide 25 mmol/L (22-30) 11/27/17 07:16 Anion Gap 14 mmol/L 11/27/17 07:16 BUN 7 mg/dL (9-20) L 11/27/17 07:16 Creatinine 0.8 mg/dL (0.8-1.5) 11/27/17 07:16 Estimated GFR > 60 ml/min 11/27/17 07:16 BUN/Creatinine Ratio 9 % 11/27/17 07:16 Glucose 90 mg/dL (75-100) 11/27/17 07:16 Calcium 8.6 mg/dL (8.4-10.2) 11/27/17 07:16 Magnesium 1.90 mg/dL (1.7-2.3) 11/27/17 07:16 Total Bilirubin 0.50 mg/dL (0.1-1.2) 11/26/17 04:20 AST 9 units/L (5-40) 11/26/17 04:20 ALT 10 units/L (7-56) 11/26/17 04:20 Alkaline Phosphatase 32 units/L (35-129) L 11/26/17 04:20 Total Protein 5.4 g/dL (6.3-8.2) L 11/26/17 04:20 Albumin 3.5 g/dL (3.9-5) L 11/26/17 04:20 Albumin/Globulin Ratio 1.8 % 11/26/17 04:20 Lipase 31 units/L (13-60) 11/25/17 15:02 Blood Type A POSITIVE 11/25/17 15:02 Antibody Screen Negative 11/25/17 15:02 Crossmatch See Detail 11/25/17 15:02
[2017-11-28 07:32] LABS: Basophils % (Auto) 0.4 % (0.0-1.8); Eosinophils # (Auto) 0.2 K/mm3 (0.0-0.4); Eosinophils % (Auto) 3.7 % (0.0-4.3); Hematocrit 25.1 % (35.5-45.6); Hemoglobin 8.6 gm/dl (11.8-15.2); Lymphocytes # (Auto) 1.7 K/mm3 (1.2-5.4); Lymphocytes % (Auto) 26.1 % (13.4-35.0); Mean Corpuscular HGB Conc 34 % (32-34); Mean Corpuscular Hemoglobin 32 pg (28-32); Mean Corpuscular Volume 93 fl (84-94); Monocytes # (Auto) 0.5 K/mm3 (0.0-0.8); Monocytes % (Auto) 7.8 % (0.0-7.3); Platelet Count 181 K/mm3 (140-440); Red Blood Count 2.71 M/mm3 (3.65-5.03); Red Cell Distribution Width 14.2 % (13.2-15.2)
[2017-11-28 07:55] LABS: BUN/Creatinine Ratio 8; Blood Urea Nitrogen 8 mg/dL (9-20); Calcium 8.8 mg/dL (8.4-10.2); Hemolysis Index 2
[2017-11-28 08:24] VITALS: BP 102/64
[2017-11-28] MEDS: SODIUM CHLORIDE FLUSH SYRINGE 10 ML IV SCH (10:00)
[2017-11-28] MEDS ORDERED: K-DUR PO ONE (12:19)
--- NOTE | 2017-11-28 14:42 | Gastroenterology Progress Note ---
Assessment and Plan 1. UGI bleed 2/2 DU with high risk stigmata - s/p endoscopic treatment. no further bleeding since procedure. okay for d/c home today. PPI BID po daily. no nsaid's. f/u in GI clinic in 2-3 weeks. Subjective Date of service: 11/28/17 Principal diagnosis: UGI bleed secondary to PUD Interval history: pt seen and examined. being discharged today. no further bleeding. denies new gi complaints Objective - Constitutional Vitals: Temp Pulse Resp BP Pulse Ox 98.4 F 66 14 102/64 96 11/28/17 08:00 11/28/17 08:00 11/28/17 08:00 11/28/17 08:00 11/28/17 08:00 General appearance: no acute distress - Respiratory Respiratory effort: normal Respiratory: bilateral: CTA - Cardiovascular Rhythm: regular Heart Sounds: Present: S1 & S2 - Gastrointestinal General gastrointestinal: Present: soft, non-tender, non-distended - Neurologic Neurological: alert and oriented x3 - Psychiatric Psychiatric: appropriate mood/affect - Labs CBC & Chem 7: 11/28/17 06:28 11/28/17 06:28 Labs: Laboratory Results - last 24 hr 11/28/17 11/28/17 06:28 06:28 WBC 6.5 RBC 2.71 L Hgb 8.6 L Hct 25.1 L MCV 93 MCH 32 MCHC 34 RDW 14.2 Plt Count 181 Lymph % (Auto) 26.1 [place] % (Auto) 7.8 H Eos % (Auto) 3.7 Baso % (Auto) 0.4 Lymph # 1.7 [place] # 0.5 Eos # 0.2 Baso # 0.0 Seg Neutrophils % 62.0 Seg Neutrophils # 4.0 Sodium 139 Potassium 3.4 L Chloride 99.6 Carbon Dioxide 27 Anion Gap 16 BUN 8 L Creatinine 1.0 Estimated GFR > 60 BUN/Creatinine Ratio 8 Glucose 88 Calcium 8.8
[2017-11-28] MEDS ORDERED: PROTONIX PO SCH (22:00)
== END 2017-11-28 17:05 | disposition home or self-care (01) | DRG 378 ==
LOC: ED 14:29 → CC1 17:08 → 3A 11-26 10:08
PROVIDERS: ADMIT Internal Medicine; ATTEND Internal Medicine
PROC: 0W3P8ZZ Control Bleeding in Gastrointestinal Tract, Via Natural or Artificial Opening Endoscopic (ICD-10-PCS; 2017-11-25)
PROC: 3E0G8GC Introduction of Other Therapeutic Substance into Upper GI, Via Natural or Artificial Opening Endoscopic (ICD-10-PCS; 2017-11-25)
PROC: 30233N1 Transfusion of Nonautologous Red Blood Cells into Peripheral Vein, Percutaneous Approach (ICD-10-PCS; principal; 2017-11-26)
DX: K26.4 Chronic or unspecified duodenal ulcer with hemorrhage (principal); D62 Acute posthemorrhagic anemia; Z68.41 Body mass index [BMI] 40.0-44.9, adult; E44.0 Moderate protein-calorie malnutrition; E66.01 Morbid (severe) obesity due to excess calories; Z71.3 Dietary counseling and surveillance; F17.200 Nicotine dependence, unspecified, uncomplicated
CPT/HCPCS: 36415; 80048; 80053; 83690; 83735; 85007; 85014; 85018; 85025; 85610; 85730; 86850; 86900; 86901; 86920; C9113; J0171; J2704; J7030; J7040; J7042; P9016

== ENCOUNTER 2018-11-08 11:15 | Emergency (ER) | payer SELFPAY ==
--- NOTE | 2018-11-08 11:46 | Emergency Department Report ---
Blank Doc - Documentation Documentation: obese AAM with PMH of upper GI bleed and HTN presents to ED c/o of painless dark tary stools for 2 days. no trauma. no dizziness
[2018-11-08 12:11] LABS: Basophils % (Auto) 0.6 % (0.0-1.8); Eosinophils # (Auto) 0.2 K/mm3 (0.0-0.4); Eosinophils % (Auto) 3.2 % (0.0-4.3); Hematocrit 38.5 % (35.5-45.6); Hemoglobin 12.7 gm/dl (11.8-15.2); Lymphocytes # (Auto) 1.5 K/mm3 (1.2-5.4); Lymphocytes % (Auto) 23.1 % (13.4-35.0); Mean Corpuscular HGB Conc 33 % (32-34); Mean Corpuscular Volume 95 fl (84-94); Monocytes # (Auto) 0.4 K/mm3 (0.0-0.8); Monocytes % (Auto) 6.4 % (0.0-7.3); Platelet Count 171 K/mm3 (140-440); Red Blood Count 4.06 M/mm3 (3.65-5.03); Red Cell Distribution Width 13.5 % (13.2-15.2)
[2018-11-08 12:22] LABS: INR 0.93 (0.87-1.13)
[2018-11-08 12:34] LABS: Alanine Aminotransferase 22 units/L (7-56); Albumin 4.5 g/dL (3.9-5); BUN/Creatinine Ratio 20; Blood Urea Nitrogen 16 mg/dL (9-20); Calcium 9.5 mg/dL (8.4-10.2); Hemolysis Index 6
[2018-11-08 13:01] VITALS: BP 131/82
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
== END 2018-11-08 13:42 | disposition home or self-care (01) ==
LOC: ED 11:15
DX: K92.2 Gastrointestinal hemorrhage, unspecified (principal)
CPT/HCPCS: 36415; 80053; 83690; 85025; 85610; 99283

== ENCOUNTER 2021-09-02 23:24 | Emergency (ER) | payer SELFPAY ==
[2021-09-03] MEDS ORDERED: ASPIRIN 325 MG TAB PO ONE (00:25)
[2021-09-03 00:26] VITALS: BP 161/99
--- NOTE | 2021-09-03 01:11 | XRay Report ---
CHEST 2 VIEWS INDICATION / CLINICAL INFORMATION: chest pain. COMPARISON: None available. FINDINGS: SUPPORT DEVICES: None. HEART / MEDIASTINUM: No significant abnormality. LUNGS / PLEURA: Focal pulmonary opacity is present in the right peripheral upper lobe. The remainder of the lungs appear grossly clear. No pneumothorax. ADDITIONAL FINDINGS: No significant additional findings. IMPRESSION: 1. Pulmonary opacity, right upper lobe. The most likely etiology is pneumonia but pulmonary infarctio n and mass could also have this appearance. Clinical correlation. Signer Name: Marcella Adams MD Signed: 09/03/2021 1:06 AM Workstation Name: [id number]
[2021-09-03 01:18] LABS: Basophils % (Auto) 0.3 % (0.0-1.8); Eosinophils # (Auto) 0.1 K/mm3 (0.0-0.4); Eosinophils % (Auto) 0.9 % (0.0-4.3); Hematocrit 42.2 % (35.5-45.6); Hemoglobin 13.6 gm/dl (11.8-15.2); Lymphocytes # (Auto) 0.9 K/mm3 (1.2-5.4); Lymphocytes % (Auto) 14.6 % (13.4-35.0); Mean Corpuscular HGB Conc 32 % (32-34); Mean Corpuscular Volume 96 fl (84-94); Monocytes # (Auto) 0.7 K/mm3 (0.0-0.8); Platelet Count 175 K/mm3 (140-440); Red Blood Count 4.38 M/mm3 (3.65-5.03); Red Cell Distribution Width 13.2 % (13.2-15.2)
[2021-09-03 01:40] LABS: Alanine Aminotransferase 22 units/L (7-56); Albumin 4.7 g/dL (3.9-5); BUN/Creatinine Ratio 8; Blood Urea Nitrogen 8 mg/dL (9-20); Calcium 8.9 mg/dL (8.4-10.2); Hemolysis Index 7
[2021-09-03] MEDS ORDERED: cefTRIAXone/NS 1 GM/50 ML 1 GM/50 ML BAG IV ONE (01:50)
[2021-09-03] MEDS ORDERED: AZITHROMYCIN 1 GM ORAL PWDR PACKET PO ONE (01:50)
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
--- NOTE | 2021-09-03 13:23 | Electrocardiograph Report ---
[facility] Test Date: 2021-09-03 Test Time: 00:09:32 Pat Name: NANDO CARDENAS JR Department: Room: Gender: M Trust Officer: [id number] : 1985 Requested By: KHLOE LONGORIA Order Number: [id number] Reading MD: Martín Post Measurements Intervals [place] Rate: 85 P: 69 LA: 134 QRS: 72 QRSD: 83 T: 28 QT: 368 QTc: 439 Interpretive Statements Sinus rhythm No previous ECG available for comparison Electronically Signed On 09-03-2021 13:23:24 EST by Martín Post
== END 2021-09-03 03:00 | disposition home or self-care (01) ==
LOC: ED 23:24
DX: J18.1 Lobar pneumonia, unspecified organism (principal); R07.89 Other chest pain; I10 Essential (primary) hypertension; F17.200 Nicotine dependence, unspecified, uncomplicated
CPT/HCPCS: 36415; 71045; 80053; 83880; 84484; 85025; 93005; 96365; 99284; J0696

== ENCOUNTER 2021-09-08 11:56 | Emergency (ER) | payer SELFPAY | END 2021-09-08 16:41 | disposition left against medical advice (07) | LOC: ED 11:56 | DX: R22.0 Localized swelling, mass and lump, head (principal); Z53.21 Procedure and treatment not carried out due to patient leaving prior to being seen by health care provider ==